=== PATIENT | male | born 1980 | race Hispanic/Latino ===

== ENCOUNTER 2016-10-12 05:16 | Emergency (ER) | payer SELFPAY ==
[2016-10-12] MEDS ORDERED: TORADOL ONE (05:52)
[2016-10-12] MEDS: TORADOL IM ONE (05:53)
--- NOTE | 2016-10-12 06:42 | Emergency Department Report ---
ED Upper Extremity Inj HPI - General Chief Complaint: Extremity Injury, Upper Stated Complaint: FALL Time Seen by Provider: 10/12/16 06:33 Source: patient Mode of arrival: Ambulatory Limitations: No Limitations - History of Present Illness Initial Comments: 36-year-old male presents to the emergency department complaining of right shoulder pain. Patient states that he was washing off a dump truck and approximately 3:30 this morning when he slipped and fell off the running board. Patient states he fell onto his right arm. He denies hitting his head or losing consciousness. Patient is complaining of sharp pain in his right shoulder. He denies numbness or tingling. There are no other complaints. MD Complaint: Injury to:: right, shoulder -: Sudden, This morning Time: 03:30 Other Extremity Injury: Shoulder: Right Other Injuries: none Handedness: right Place: work Severity scale (0 -10): 7 Improves With: none Worsens With: movement of extremity Context: fall Associated Symptoms: denies other symptoms - Related Data Home Medications Medication Instructions Recorded Confirmed Last Taken Acetaminophen [Acetaminophen ER 650 mg PO Q8HR PRN 01/07/15 01/07/15 01/07/15 TAB] Cyclobenzaprine [Flexeril 10 MG 01/07/15 01/07/15 01/06/15 TAB] Previous Rx's Medication Instructions Recorded Last Taken Type HYDROcodone/APAP 5-325 [[place] 1 each PO Q6HR PRN #20 tablet 10/12/16 Unknown Rx 5/325] Allergies Allergy/AdvReac Type Severity Reaction Status Date / Time ibuprofen [From Motrin] Allergy Swelling Verified 07/12/14 12:51 naproxen [From Naprosyn] Allergy Swelling Verified 07/12/14 12:51 ED Review of Systems ROS: Stated complaint: FALL Other details as noted in HPI Comment: All other systems reviewed and negative Musculoskeletal: as per HPI, arthralgia ED Past Medical Hx - Past Medical History Previous Medical History?: Yes Additional medical history: SCIATICA, Rt Shoulder dislocation - Surgical History Past Surgical History?: Yes Additional Surgical History: hernia repair - Family History Family history: no significant - Social History Smoking Status: Current Every Day Smoker Substance Use Type: None - Medications Home Medications: Home Medications Medication Instructions Recorded Confirmed Last Taken Type Acetaminophen [Acetaminophen ER 650 mg PO Q8HR PRN 01/07/15 01/07/1515 History TAB] Cyclobenzaprine [Flexeril 10 MG 01/07/15 01/07/15 01/06/15 History TAB] HYDROcodone/APAP 5-325 [[place] 1 each PO Q6HR PRN #20 tablet 10/12/16 Unknown Rx 5/325] ED Physical Exam - General Limitations: No Limitations General appearance: alert, in no apparent distress - Head Head exam: Present: atraumatic, normocephalic - Eye Eye exam: Present: normal appearance, PERRL, EOMI - ENT ENT exam: Present: normal exam, normal orophraynx, mucous membranes moist - Neck Neck exam: Present: normal inspection, full ROM. Absent: tenderness - Respiratory Respiratory exam: Present: normal lung sounds bilaterally. Absent: respiratory distress - Cardiovascular Cardiovascular Exam: Present: regular rate, normal rhythm, normal heart sounds - GI/Abdominal GI/Abdominal exam: Present: soft, normal bowel sounds. Absent: distended, tenderness - Extremities Exam Extremities exam: Present: other (tenderness to palpation over the right shoulder. There appears to be a depression deformity in the anterior right shoulder. There is no ecchymosis or erythema. Remainder of extremities are unremarkable.) - Back Exam Back exam: Present: normal inspection, full ROM. Absent: tenderness - Neurological Exam Neurological exam: Present: alert, oriented X3. Absent: motor sensory deficit - Skin Skin exam: Present: warm, dry, intact ED Course Vital Signs 10/12/16 10/12/16 10/12/16 05:55 06:29 07:30 Temperature 97.7 F Pulse Rate 90 Pulse Rate [ Intra-Procedure ] Pulse Rate [ Post-Procedure] Pulse Rate [Pre -Procedure] Respiratory 18 16 Rate Respiratory Rate [Intra- Procedure] Respiratory Rate [Post- Procedure] Respiratory Rate [Pre- Procedure] Blood Pressure 146/93 Blood Pressure [Intra- Procedure] Blood Pressure [Post-Procedure ] Blood Pressure [Pre-Procedure] Blood Pressure 158/112 [Right] O2 Sat by Pulse 100 100 Oximetry O2 Sat by Pulse Oximetry [ Intra-Procedure ] O2 Sat by Pulse Oximetry [Post -Procedure] O2 Sat by Pulse Oximetry [Pre- Procedure] 10/12/16 10/12/16 10/12/16 07:43 07:46 07:47 Temperature Pulse Rate Pulse Rate [ 85 85 Intra-Procedure ] Pulse Rate [ 80 Post-Procedure] Pulse Rate [Pre 84 84 84 -Procedure] Respiratory Rate Respiratory 26 H 26 H Rate [Intra- Procedure] Respiratory 23 Rate [Post- Procedure] Respiratory 16 16 16 Rate [Pre- Procedure] Blood Pressure Blood Pressure 162/100 162/100 [Intra- Procedure] Blood Pressure 147/94 [Post-Procedure ] Blood Pressure 106/81 106/81 106/81 [Pre-Procedure] Blood Pressure [Right] O2 Sat by Pulse Oximetry O2 Sat by Pulse 98 98 Oximetry [ Intra-Procedure ] O2 Sat by Pulse 95 Oximetry [Post -Procedure] O2 Sat by Pulse 97 97 97 Oximetry [Pre- Procedure] - Moderate Sedation Indications: fracture/dislocation redu ASA Class: I Mallampati Airway Score: 2 Preparation: t rail turner applied, pulse oximeter, capnometry used, suction/ airway equipment at bedside, IV secured IV Etomidate Dose (mgs): 20 Complications: none Patient Tolerated Procedure: well Additional Comments: Total sedation time was 5 minutes. - Orthopedic Joint Reduction Joint #1 Consent Obtained: verbal consent Time Out Performed: Yes Side: right Joint Reduction Location: shoulder Analgesia: moderate sedation Shoulder Technique Used (if applicable): external rotation, Milch Post-Reduction Neuro Exam: intact Post-Reduction Vascular Exam: intact Post Reduction X-Ray Obtained: Yes Post Reduction X-Ray Results: reduced Splint Applied: Yes Patient Tolerated Procedure: well ED Medical Decision Making - Radiology Data Radiology results: image reviewed interpreted by me: Right shoulder x-ray reveals an anterior, inferior dislocation at the glenohumeral joint. There is no evidence of fracture. - Medical Decision Making Patient's shoulder has been successfully reduced. See associated procedure no. Total sedation time was 5 minutes. Patient has been placed in a right shoulder immobilizer. Patient will be discharged home at this time to follow up with orthopedics. - Differential Diagnosis dislocation, fracture Critical care attestation.: If time is entered above; I have spent that time in minutes in the direct care of this critically ill patient, excluding procedure time. ED Disposition Clinical Impression: Dislocation of right shoulder joint Qualifiers: Encounter type: initial encounter Qualified Code(s): S43.004A - Unspecified dislocation of right shoulder joint, initial encounter Disposition: DISCHARGED TO HOME OR SELFCARE Is pt being admited?: No Condition: Stable Instructions: Shoulder Dislocation (ED) Prescriptions: HYDROcodone/APAP 5-325 [[place] 5/325] 1 each PO Q6HR PRN #20 tablet PRN Reason: Pain Referrals: SAHARA COLEMAN MD [Staff Physician] - 3-5 Days Time of Disposition: 08:20
[2016-10-12] MEDS: DILAUDID IV ONE (06:55)
[2016-10-12] MEDS: TORADOL IV ONE (07:00)
[2016-10-12] MEDS ORDERED: NACL 0.9% 1000 ML 1,000 ML ONE (07:06)
[2016-10-12] MEDS: NACL 0.9% 1000 ML 1,000 ML IV ONE (07:25)
[2016-10-12] MEDS: AMIDATE IV ONE (07:30)
--- NOTE | 2016-10-12 07:49 | XRay Report ---
RIGHT SHOULDER, 3 VIEWS History: Pain after fall. Compared to 08/19/12. Anterior, inferior dislocation at the right glenohumeral joint is identified. No fracture or ligamentous injury. Early osteoarthritic changes are identified at the a.c. joint and glenohumeral joint. Chronic distal right clavicle fracture is suspected. There is also irregularity along the inferior or of the glenoid which could represent a chronic [place] lesion. Consider further evaluation with a right shoulder MR arthrogram as an outpatient. IMPRESSION: Right shoulder dislocation.
[2016-10-12] MEDS: NORCO 10/325 PO ONE (08:21)
[2016-10-12 08:39] VITALS: BP 136/96
--- NOTE | 2016-10-12 08:47 | XRay Report ---
RIGHT SHOULDER, ONE VIEW History: Pain, dislocation, postreduction film. Findings: A limited internal rotational view of the right shoulder is presented which demonstrates at least partial reduction of the right shoulder dislocation. The humeral head remains slightly low riding which may represent a joint effusion or poor positioning of the patient. Impression: Reduction of the right shoulder dislocation as outlined above.
== END 2016-10-12 08:38 | disposition home or self-care (01) ==
LOC: ED 05:16
DX: S43.004A Unspecified dislocation of right shoulder joint, initial encounter (principal); F17.200 Nicotine dependence, unspecified, uncomplicated; W01.0XXA Fall on same level from slipping, tripping and stumbling without subsequent striking against object, initial encounter; Y93.9 Activity, unspecified; Y92.9 Unspecified place or not applicable; Y99.9 Unspecified external cause status
CPT/HCPCS: 23650; 73020; 73030; 96372; 96374; 96375; 99283; J1170; J1885; J7030

== ENCOUNTER 2017-07-30 10:18 | Emergency (ER) | payer OTHER ==
[2017-07-30 10:28] VITALS: BP 165/107
[2017-07-30] MEDS ORDERED: ZOFRAN IV ONE (11:23)
[2017-07-30] MEDS ORDERED: MORPHINE IV ONE (11:23)
[2017-07-30] MEDS ORDERED: NACL 0.9% 1000 ML 1,000 ML IV ONE (11:23)
--- NOTE | 2017-07-30 11:26 | Emergency Department Report ---
Chief Complaint: Abdominal Pain Stated Complaint: SHARP LEFT ABD PAIN Time Seen by Provider: 07/30/17 11:18 - HPI History of Present Illness: 37-year-old male presents with left flank and abdominal pain, nausea and vomiting with a suspicion for kidney stones. He has a history of this in the past. Has hematuria. Follows with Dr. Barber for urology. [place] patient. - ROS Review of Systems: Patient is positive for flank and abdominal pain, hematuria, nausea and vomiting. Patient is negative for fever, chest pain, shortness of breath, constipation or diarrhea. - Exam Vital Signs: Vital Signs 07/30/17 10:25 Temperature 97.8 F Pulse Rate 111 H Respiratory 16 Rate Blood Pressure 165/107 O2 Sat by Pulse 98 Oximetry Physical Exam: Patient is awake and alert, 3. Patient is holding his left side with flank and abdominal pain is not reproducible to palpation. Heart sounds are normal with mild tachycardia. There is a slight wheezing on lung sounds but no tachypnea or accessory muscle use. MSE screening note: Focused history and physical exam performed. Due to findings the following was ordered: Patient was given an IV with pain medication and nausea medication and fluid resuscitation. CBC, CMP and urinalysis ordered. CT scan of the abdomen and pelvis without contrast ordered for suspicion of nephrolithiasis. ED Disposition for MSE Condition: Stable Referrals: PRIMARY CARE, [Primary Care Provider] - 3-5 Days
--- NOTE | 2017-07-30 12:11 | Cat Scan Report ---
CT ABDOMEN PELVIS WITHOUT CONTRAST: HISTORY: abdominal pain. COMPARISON: 10/20/11. TECHNIQUE: Helical CT in 1.25mm intervals without IV contrast. Sagittal and coronal reconstructions. FINDINGS: Lung bases: Normal. Liver: Normal. Biliary system: Normal. Pancreas: Normal. Spleen: Normal. Kidneys/ureters/bladder: A punctate calyceal stone is noted in the superior left kidney. The kidneys, ureters and bladder are within normal limits otherwise. Adrenal glands: Normal. Aorta: Normal. Intestines: Normal. Appendix: Normal. Pelvic viscera: Normal. Ascites: None. Adenopathy: None. Musculoskeletal: Normal. IMPRESSION: Punctate left renal stone, nonobstructing No acute inflammatory process is identified in the abdomen or pelvis.
[2017-07-30 12:42] LABS: Bacteria,Urine 1+ /HPF (Negative); Hyaline Casts,Urine 1 /LPF; Mucus,Urine 2+ /HPF
[2017-07-30 12:49] LABS: Bilirubin,Urine NEG (Negative); Blood,Urine LG (Negative); Color,Urine Amber (Yellow); Nitrite,Urine NEG (Negative)
[2017-07-30 12:50] LABS: RBC,Urine > 182.0 /HPF (0.0-6.0)
[2017-07-30 13:04] LABS: Basophils # (Auto) 0.1 K/mm3 (0.0-0.1); Basophils % (Auto) 1.3 % (0.0-1.8); Eosinophils % (Auto) 0.5 % (0.0-4.3); Hematocrit 45.6 % (35.5-45.6); Hemoglobin 15.6 gm/dl (11.8-15.2); Lymphocytes # (Auto) 1.1 K/mm3 (1.2-5.4); Lymphocytes % (Auto) 27.5 % (13.4-35.0); Mean Corpuscular HGB Conc 34 % (32-34); Mean Corpuscular Hemoglobin 35 pg (28-32); Mean Corpuscular Volume 103 fl (84-94); Monocytes # (Auto) 0.3 K/mm3 (0.0-0.8); Monocytes % (Auto) 8.3 % (0.0-7.3); Platelet Count 183 K/mm3 (140-440); Red Blood Count 4.42 M/mm3 (3.65-5.03); Red Cell Distribution Width 13.9 % (13.2-15.2)
[2017-07-30 13:27] LABS: Alanine Aminotransferase 97 units/L (7-56); Albumin 3.8 g/dL (3.9-5); BUN/Creatinine Ratio 13; Bilirubin,Direct 0.4 mg/dL (0-0.2); Blood Urea Nitrogen 9 mg/dL (9-20); Calcium 8.3 mg/dL (8.4-10.2); Hemolysis Index 13
[2017-07-30] MEDS ORDERED: ROCEPHIN/NS 1 GM/50 ML 1 GM/50 ML BAG IV ONE (14:26)
--- NOTE | 2017-07-30 14:26 | Emergency Department Report ---
ED Male HPI - General Chief complaint: Abdominal Pain Stated complaint: SHARP LEFT ABD PAIN Time Seen by Provider: 07/30/17 11:18 Source: patient Mode of arrival: Ambulatory Limitations: No Limitations - History of Present Illness Initial comments: 37-year-old male past medical history substance abuse, kidney stones presents with complaint of abdominal pain and dysuria for several days. Patient awake alert and oriented 3. States he has dysuria with slightly darker urine usual and abdominal pain radiating to his left groin and flank. Denies fevers or chills. Patient's screening by Dr.Shear SAHU Complaint: dysuria Onset/Timin -: days(s) Improves with: none Worsens with: urination dysuria - Related Data Home Medications Medication Instructions Recorded Confirmed Last Taken Acetaminophen [Acetaminophen ER 650 mg PO Q8HR PRN 01/07/15 01/07/15 01/07/15 TAB] Cyclobenzaprine [Flexeril 10 MG 01/07/15 01/07/15 01/06/15 TAB] Previous Rx's Medication Instructions Recorded Last Taken Type HYDROcodone/APAP 5-325 [[place] 1 each PO Q6HR PRN #20 tablet 10/12/16 Unknown Rx 5/325] HYDROcodone/APAP 5-325 [[place] 1 each PO Q6HR PRN #15 tablet 07/30/17 Unknown Rx 5/325] Ondansetron [Zofran Odt] 4 mg PO Q8H PRN #12 tab.rapdis 07/30/17 Unknown Rx Phenazopyridine [Pyridium] 100 mg PO TID #6 tab 07/30/17 Unknown Rx Sulfamethoxazole/Trimethoprim 1 each PO BID #14 tablet 07/30/17 Unknown Rx [Bactrim DS TAB] Allergies Allergy/AdvReac Type Severity Reaction Status Date / Time ibuprofen [From Motrin] Allergy Swelling Verified 07/30/17 14:29 naproxen [From Naprosyn] Allergy Swelling Verified 07/30/17 14:29 ED Review of Systems ROS: Stated complaint: SHARP LEFT ABD PAIN Other details as noted in HPI Constitutional: denies: chills, fever Eyes: denies: eye pain, eye discharge, vision change ENT: denies: ear pain, throat pain Respiratory: denies: cough, shortness of breath, wheezing Cardiovascular: denies: chest pain, palpitations Endocrine: no symptoms reported Gastrointestinal: denies: abdominal pain, nausea, diarrhea Genitourinary: urgency, dysuria Musculoskeletal: denies: back pain, joint swelling, arthralgia Skin: denies: rash, lesions Neurological: denies: headache, weakness, paresthesias Psychiatric: denies: anxiety, depression Hematological/Lymphatic: denies: easy bleeding, easy bruising ED Past Medical Hx - Past Medical History Previous Medical History?: Yes Additional medical history: SCIATICA, Rt Shoulder dislocation, kidney stones - Surgical History Past Surgical History?: Yes Additional Surgical History: hernia repair - Social History Smoking Status: Current Every Day Smoker Substance Use Type: None - Medications Home Medications: Home Medications Medication Instructions Recorded Confirmed Last Taken Type Acetaminophen [Acetaminophen ER 650 mg PO Q8HR PRN 01/07/15 01/07/15 01/07/15 History TAB] Cyclobenzaprine [Flexeril 10 MG 01/07/15 01/07/15 01/06/15 History TAB] HYDROcodone/APAP 5-325 [[place] 1 each PO Q6HR PRN #20 tablet 10/12/16 Unknown Rx 5/325] HYDROcodone/APAP 5-325 [[place] 1 each PO Q6HR PRN #15 tablet 07/30/17 Unknown Rx 5/325] Ondansetron [Zofran Odt] 4 mg PO Q8H PRN #12 tab.rapdis 07/30/17 Unknown Rx Phenazopyridine [Pyridium] 100 mg PO TID #6 tab 07/30/17 Unknown Rx Sulfamethoxazole/Trimethoprim 1 each PO BID #14 tablet 07/30/17 Unknown Rx [Bactrim DS TAB] ED Physical Exam - General Limitations: No Limitations General appearance: alert, in no apparent distress - Head Head exam: Present: atraumatic, normocephalic - Eye Eye exam: Present: normal appearance, PERRL, EOMI - ENT ENT exam: Present: mucous membranes moist - Neck Neck exam: Present: normal inspection, full ROM - Respiratory Respiratory exam: Present: normal lung sounds bilaterally. Absent: respiratory distress - Cardiovascular Cardiovascular Exam: Present: regular rate, normal rhythm. Absent: systolic murmur, diastolic murmur, rubs, gallop - GI/Abdominal GI/Abdominal exam: Present: soft, normal bowel sounds - Rectal Rectal exam: Present: deferred - Extremities Exam Extremities exam: Present: normal inspection - Back Exam Back exam: Present: normal inspection - Neurological Exam Neurological exam: Present: alert, oriented X3, CN II-XII intact, normal gait - Psychiatric Psychiatric exam: Present: normal affect, normal mood - Skin Skin exam: Present: warm, dry, intact, normal color. Absent: rash ED Course Vital Signs 07/30/17 07/30/17 10:25 11:45 Temperature 97.8 F Pulse Rate 111 H Respiratory 16 18 Rate Blood Pressure 165/107 O2 Sat by Pulse 98 Oximetry ED Medical Decision Making - Lab Data Result diagrams: 07/30/17 12:50 07/30/17 12:50 - Medical Decision Making A/P: Renal colic, UTI 1-CT shows no obstructive uropathy 2-case discussed with Dr. Abbott, will treat patient empirically for symptoms and also cover empirically for UTI 3-follow up with primary care and urology 4- tolerating by mouth fluid and fluid without difficulty before discharge. Critical care attestation.: If time is entered above; I have spent that time in minutes in the direct care of this critically ill patient, excluding procedure time. ED Disposition Clinical Impression: Kidney stone Urinary tract infection Qualifiers: Urinary tract infection type: site unspecified Hematuria presence: with hematuria Qualified Code(s): N39.0 - Urinary tract infection, site not specified ; R31.9 - Hematuria, unspecified; R31.9 - Hematuria, unspecified Disposition: - TO HOME OR SELFCARE Is pt being admited?: No Does the pt Need Aspirin: No Condition: Stable Instructions: Urinary Tract Infection in Men (ED) Prescriptions: HYDROcodone/APAP 5-325 [[place] 5/325] 1 each PO Q6HR PRN #15 tablet PRN Reason: Pain Ondansetron [Zofran Odt] 4 mg PO Q8H PRN #12 tab.rapdis PRN Reason: Nausea Phenazopyridine [Pyridium] 100 mg PO TID #6 tab Sulfamethoxazole/Trimethoprim [Bactrim DS TAB] 1 each PO BID #14 tablet Referrals: CHRIS ROWE [Provider Group] - 3-5 Days [facility] [Outside] - 3-5 Days [facility] [Outside] - 3-5 Days Forms: Work/School Release Form(ED) Time of Disposition: 14:27
[2017-07-30] MEDS ORDERED: cefTRIAXone 1 GM in NACL 0.9% 20 ML IV ONE (15:15)
== END 2017-07-30 15:00 | disposition home or self-care (01) ==
LOC: ED 10:18
DX: N39.0 Urinary tract infection, site not specified (principal); N20.0 Calculus of kidney; F17.200 Nicotine dependence, unspecified, uncomplicated; Z88.6 Allergy status to analgesic agent; Z88.8 Allergy status to other drugs, medicaments and biological substances
CPT/HCPCS: 36415; 74176; 80048; 80074; 81001; 85025; 96361; 96374; 96375; 99284; J2270; J2405; J7030; J0696

== ENCOUNTER 2019-08-11 13:44 | Emergency (ER) | payer OTHER ==
[2019-08-11 14:00] VITALS: BP 143/84
[2019-08-11] MEDS ORDERED: HYDROcodone/ACETAMINOPHEN 5-325 MG TAB PO ONE (14:46)
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
[2019-08-11] MEDS ORDERED: dexAMETHasone 20 MG/5 ML VIAL IM ONE (18:59)
[2019-08-11] MEDS ORDERED: oxyCODONE /ACETAMINOPHEN 5-325MG TAB PO ONE (18:59)
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
== END 2019-08-11 21:45 | disposition home or self-care (01) ==
LOC: ED 13:44
DX: M54.31 Sciatica, right side (principal); M25.551 Pain in right hip; L89.899 Pressure ulcer of other site, unspecified stage; Z87.442 Personal history of urinary calculi; Z98.890 Other specified postprocedural states; Z79.899 Other long term (current) drug therapy; Z88.8 Allergy status to other drugs, medicaments and biological substances; V43.62XA Car passenger injured in collision with other type car in traffic accident, initial encounter; Y93.89 Activity, other specified; Y92.410 Unspecified street and highway as the place of occurrence of the external cause; Y99.8 Other external cause status
CPT/HCPCS: 72192; 73502; 73630; 96372; 99284; J1100